=== PATIENT | male | born 1995 | race Caucasian/White ===

== ENCOUNTER 2019-05-26 20:35 | Emergency (ER) | payer SELFPAY ==
[~2019-05-26] VITALS: Ht 167.6 cm; Wt 79.4 kg
[2019-05-26 20:35] VITALS: BP_SYST 110
--- NOTE | 2019-05-26 20:35 | NUR ---
Pt BIB in custody of [facility] for medical clearance r/t forced arrest. Pt with multiple abrasions to face RUE, right side, superficial lac to inner upper lip ~0.5 cm. Redness to left eye. AAOx4, Denies LOC.
--- NOTE | 2019-05-26 20:35 | NUR ---
Pt placed to ER chair 1.
--- NOTE | 2019-05-26 20:40 | NUR ---
Pt moved to ER bed 01 for eye exam per REGINA Nieto.
--- NOTE | 2019-05-26 20:59 | NUR ---
Joann ashley in ED - 05/26/19 at 2100 by SDEDAJ Pt moved to [place] [id number] for eye exam per REGINA Nieto.
[2019-05-26] MEDS ORDERED: BACITRACIN 1 GM OINT TP ONE (21:00)
[2019-05-26 21:34] VITALS: BP_SYST 115
--- NOTE | 2019-05-26 21:34 | NUR ---
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 ER MD discussed with patient the results and treatment provided. Patient in stable condition. ID arm band removed. No Rx given. Patient educated on pain management and to follow up with PMD. Pain Scale 0/10. Opportunity for questions provided and answered. Medication side effect fact sheet provided. 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
== END 2019-05-26 21:34 ==
LOC: SED 20:35
DX: S30.811A Abrasion of abdominal wall, initial encounter (principal); H11.32 Conjunctival hemorrhage, left eye; Y04.0XXA Assault by unarmed brawl or fight, initial encounter; Y93.89 Activity, other specified; Y92.89 Other specified places as the place of occurrence of the external cause; Y99.8 Other external cause status
CPT/HCPCS: 99283